=== PATIENT | female | born 1975 | race Caucasian/White ===

== ENCOUNTER 2021-12-05 01:41 | Observation (INO) | payer BC ==
[2021-12-05] MEDS ORDERED: ONDANSETRON 4 MG/2 ML VIAL IVP STA ×2 (02:08→03:13)
[2021-12-05] MEDS ORDERED: SODIUM CHLORIDE 0.9% 500 ML 500 ML IV STA (02:08)
[2021-12-05 02:17] LABS: Basophils % (A) 0 %; Eosinophils # (A) 0.1 k/uL (0-0.7); Eosinophils % (A) 1 %; HCT 45.4 % (34.0-46.0); Lymphocytes # (A) 1.2 k/uL (1.0-4.8); Lymphocytes % (A) 7 %; MCH 31.2 pg (25.0-35.0); MCHC 35.3 g/dL (31.0-37.0); MCV 88.3 fL (80.0-100.0); Mean Platelet Volume 8.8; Monocytes # (A) 0.3 k/uL (0-1.0); Monocytes % (A) 2 %; Neutrophils # (A) 17.2 k/uL (1.3-7.7); Neutrophils % (A) 91 %; Platelet Count 197 k/uL (150-450); RBC 5.14 m/uL (3.80-5.40); RDW 13.1 % (11.5-15.5)
[2021-12-05 02:32] LABS: ALT 25 U/L (4-34); AST 27 U/L (14-36); African American GFR (CKD) >90 (>60 ml/min/1.73 sqM); Albumin 4.8 g/dL (3.5-5.0); Alkaline Phosphatase 58 U/L (38-126); Amylase 54 U/L (30-110); Anion Gap 14 mmol/L; Blood Urea Nitrogen 16 mg/dL (7-17); Calcium 9.5 mg/dL (8.4-10.2); Carbon Dioxide 19 mmol/L (22-30); Chloride 100 mmol/L (98-107); Glucose 140 mg/dL (74-99); Lipase 110 U/L (23-300); Non-African American GFR(CKD) >90 (>60 ml/min/1.73 sqM); Potassium 4.1 mmol/L (3.5-5.1); Sodium 133 mmol/L (137-145); Total Bilirubin 0.9 mg/dL (0.2-1.3); Total Protein 7.3 g/dL (6.3-8.2)
[2021-12-05] MEDS ORDERED: METOCLOPRAMIDE 5 MG/ML 2 ML VIAL IVP STA ×2 (03:22→07:30)
--- NOTE | 2021-12-05 03:43 | CT ---
EXAMINATION TYPE: CT abdomen pelvis wo con DATE OF EXAM: 12/05/2021 COMPARISON: None HISTORY: RUQ abdominal pain. no prior on pacs CT DLP: 339.9 mGycm Automated exposure control for dose reduction was used. Images obtained from the diaphragm to the floor of the pelvis with no contrast. The lung bases are clear. No pleural effusion. Heart size is normal. No pericardial effusion. Liver s pleen stomach pancreas and gallbladder appear normal. The bile ducts are not dilated. There is no adrenal mass. Kidneys have normal size and contour. No hydronephrosis. No retroperitoneal adenopathy. The bladder distends smoothly. No inguinal hernia. No free fluid in the pelvis. Uterus i s anteverted. There is 2 cm slightly rounded calcified density in the left adnexal region that could be calcifying ovarian cyst. Appendix is posterior and appears normal. There is no mesenteric edema. No ascites or free air. No sign of a bowel obstruction. There are sigmo id diverticula. The lumbar vertebrae have normal alignment. No compression fracture. There is mild narrowing at L5-S1 disc space. The bony pelvis is intact. The hip joints are intact. IMPRESSION: Normal appendix. Left adnexal calcific density could be calcification in the left ovary. There is mil d sigmoid diverticulosis without diverticulitis.
[2021-12-05 05:08] LABS: Appearance,Urine Cloudy (Clear); Bilirubin,Urine Negative (Negative); Blood,Urine Negative (Negative); Color,Urine Yellow; Glucose,Urine (UA) Negative (Negative); Hyaline Casts,Urine 1 /lpf (0-2); Ketones,Urine 4+ (Negative); Leukocyte Esterase,Urine Negative (Negative); Mucus,Urine Many /hpf; Nitrite,Urine Negative (Negative); PH, Urine 6.5 (5.0-8.0); Protein,Urine 1+ (Negative); RBC,Urine 6 /hpf (0-5); Specific Gravity,Urine 1.028 (1.001-1.035); Squamous Epithelial Cell,Urine 4 /hpf (0-4); Urobilinogen,Urine <2.0 mg/dL (<2.0); WBC,Urine 3 /hpf (0-5)
[2021-12-05] MEDS ORDERED: MAG HYDROX/AL HYDROX/SIMETH 30 ML, HYOSCYAMINE ELIXIR 10 ML, LIDOCAINE VISCOUS 2% 10 ML PO STA ×3 (05:29)
[2021-12-05] MEDS ORDERED: FAMOTIDINE 20 MG/2 ML VIAL IV STA (07:30)
--- NOTE | 2021-12-05 07:41 | ED ---
Abdominal Pain HPI <James Baker - Last Filed: 12/05/21 09:33> - General Source: patient Mode of arrival: ambulatory - History of Present Illness MD Complaint: abdominal pain -: hour(s) Location: epigastric Radiation: none Migration to: no migration Severity: severe Quality: sharp Consistency: constant Improves With: nothing Worsens With: nothing Associated Symptoms: nausea, vomiting - Related Data LMP (females 10-50): this week <Hakeem Hicks - Last Filed: 12/09/21 00:55> - General Chief Complaint: Abdominal Pain Stated Complaint: Abdominal Pain Time Seen by Provider: 12/05/21 01:54 - History of Present Illness Initial Comments: This patient is a 45-year-old woman presenting with epigastric pain and vomiting that had come on over the past couple of hours. Patient states that the pain is severe. She has not noted worsening or relieving factors. She is having bilious vomiting, multiple episodes. No blood or coffee-ground emesis. Patient's last bowel movement a number of hours ago was somewhat loose. She has not noted any change in urination. (Hakeem Hicks) - Related Data Home Medications Medication Instructions Recorded Confirmed Dextroamphetamine/Amphetamine 20 mg PO DAILY 12/05/21 12/05/21 [Adderall Xr 20 mg Capsule] Dextroamphetamine/Amphetamine 10 mg PO PC-LUNCH 12/05/21 12/05/21 [Adderall] Ibuprofen [Motrin] 800 mg PO DAILY PRN 12/05/21 12/05/21 Varenicline [Chantix Starter Pack] 0.5 mg PO DIRECTED 12/05/21 12/05/21 Allergies Allergy/AdvReac Type Severity Reaction Status Date / Time No Known Allergies Allergy Verified 12/05/21 10:29 Review of Systems ROS Other: All systems not noted in ROS Statement are negative. <James Baker - Last Filed: 12/05/21 09:33> ROS Other: All systems not noted in ROS Statement are negative. Constitutional: Denies: fever, chills Respiratory: Denies: cough, dyspnea Cardiovascular: Denies: chest pain, palpitations, edema Gastrointestinal: Reports: abdominal pain, nausea, vomiting. Denies: diarrhea Genitourinary: Denies: dysuria, frequency, hematuria Musculoskeletal: Denies: back pain Skin: Denies: rash Neurological: Denies: headache, weakness <Hakeem Hicks - Last Filed: 12/09/21 00:55> ROS Statement: Those systems with pertinent positive or pertinent negative responses have been documented in the HPI. Past Medical History Past Medical History: No Reported History History of Any Multi-Drug Resistant Organisms: None Reported Past Surgical History: No Surgical Hx Reported Past Psychological History: No Psychological Hx Reported Smoking Status: Never smoker Past Alcohol Use History: None Reported Past Drug Use History: None Reported <Hakeem Hicks - Last Filed: 12/09/21 00:55> General Exam General appearance: alert, in no apparent distress Head exam: Present: atraumatic, normocephalic Eye exam: Present: normal appearance. Absent: scleral icterus, conjunctival injection Neck exam: Present: normal inspection Respiratory exam: Present: normal lung sounds bilaterally. Absent: respiratory distress, wheezes, rales, rhonchi, stridor Cardiovascular Exam: Present: regular rate, normal rhythm, normal heart sounds. Absent: systolic murmur, diastolic murmur, rubs, gallop GI/Abdominal exam: Present: soft, tenderness (Epigastric). Absent: distended, guarding, rebound, rigid, mass, pulsatile mass, hernia Extremities exam: Present: normal inspection, normal capillary refill. Absent: pedal edema, calf tenderness Back exam: Present: normal inspection. Absent: CVA tenderness (R), CVA tenderness (L) Neurological exam: Present: alert Skin exam: Present: warm, dry, intact, normal color. Absent: rash <Hakeem Hicks - Last Filed: 12/09/21 00:55> Course Vital Signs 12/05/21 12/05/21 12/05/21 01:47 07:38 12:11 Temperature 99.2 F Pulse Rate 99 96 105 H Pulse Rate [ Pulse Oximetery ] Respiratory 18 18 18 Rate Blood Pressure 121/59 128/79 120/62 Blood Pressure [Right Arm] O2 Sat by Pulse 98 100 99 Oximetry 12/05/21 12/05/21 15:00 15:50 Temperature 98.6 F Pulse Rate 85 Pulse Rate [ 68 Pulse Oximetery ] Respiratory 20 16 Rate Blood Pressure 124/72 Blood Pressure 100/63 [Right Arm] O2 Sat by Pulse 99 100 Oximetry Medical Decision Making - Lab Data Result diagrams: 12/05/21 01:58 12/05/21 01:58 - Radiology Data Radiology results: report reviewed (Computed tomography scan abdomen and pelvis reveals no acute abnormality. Ultrasound shows no acute process) <James Baker - Last Filed: 12/05/21 09:33> - Lab Data Result diagrams: 12/07/21 05:20 12/07/21 05:20 <Hakeem Hicks - Last Filed: 12/09/21 00:55> - Medical Decision Making Patient reevaluated twice. Patient still has mild discomfort. Abdomen soft with mild tenderness to the epigastric region. Patient still feels nauseated. Patient did vomit with by mouth challenge. Patient will be held for observation secondary to intractable nausea vomiting. Diego Duarte has been paged for city call. (James Baker) - Lab Data Lab Results 12/05/21 12/05/21 12/05/21 Range/Units 01:58 01:58 01:58 WBC 19.0 H (3.8-10.6) k/uL RBC 5.14 (3.80-5.40) m/uL Hgb 16.0 (11.4-16.0) gm/dL Hct 45.4 (34.0-46.0) % MCV 88.3 (80.0-100.0) fL MCH 31.2 (25.0-35.0) pg MCHC 35.3 (31.0-37.0) g/dL RDW 13.1 (11.5-15.5) % Plt Count 197 (150-450) k/uL MPV 8.8 Neutrophils % 91 % Lymphocytes % 7 % Monocytes % 2 % Eosinophils % 1 % Basophils % 0 % Neutrophils # 17.2 H (1.3-7.7) k/uL Lymphocytes # 1.2 (1.0-4.8) k/uL Monocytes # 0.3 (0-1.0) k/uL Eosinophils # 0.1 (0-0.7) k/uL Basophils # 0.0 (0-0.2) k/uL Sodium 133 L (137-145) mmol/L Potassium 4.1 (3.5-5.1) mmol/L Chloride 100 (98-107) mmol/L Carbon Dioxide 19 L (22-30) mmol/L Anion Gap 14 mmol/L BUN 16 (7-17) mg/dL Creatinine 0.58 (0.52-1.04) mg/dL Est GFR (CKD-EPI)AfAm >90 (>60 ml/min/1.73 sqM) Est GFR (CKD-EPI)NonAf >90 (>60 ml/min/1.73 sqM) Glucose 140 H (74-99) mg/dL Plasma Lactic Acid Ethan 2.0 (0.7-2.0) mmol/L Calcium 9.5 (8.4-10.2) mg/dL Total Bilirubin 0.9 (0.2-1.3) mg/dL AST 27 (14-36) U/L ALT 25 (4-34) U/L Alkaline Phosphatase 58 (38-126) U/L Total Protein 7.3 (6.3-8.2) g/dL Albumin 4.8 (3.5-5.0) g/dL Amylase 54 (30-110) U/L Lipase 110 (23-300) U/L Urine Color Urine Appearance (Clear) Urine pH (5.0-8.0) Ur Specific [place] (1.001-1.035) Urine Protein (Negative) Urine Glucose (UA) (Negative) Urine Ketones (Negative) Urine Blood (Negative) Urine Nitrite (Negative) Urine Bilirubin (Negative) Urine Urobilinogen (<2.0) mg/dL Ur Leukocyte Esterase (Negative) Urine RBC (0-5) /hpf Urine WBC (0-5) /hpf Ur Squamous Epith Cells (0-4) /hpf Hyaline Casts (0-2) /lpf Urine Mucus (None) /hpf Urine HCG, Qual (Not Detectd) 12/05/21 12/05/21 Range/Units 04:01 04:01 WBC (3.8-10.6) k/uL RBC (3.80-5.40) m/uL Hgb (11.4-16.0) gm/dL Hct (34.0-46.0) % MCV (80.0-100.0) fL MCH (25.0-35.0) pg MCHC (31.0-37.0) g/dL RDW (11.5-15.5) % Plt Count (150-450) k/uL MPV Neutrophils % % Lymphocytes % % Monocytes % % Eosinophils % % Basophils % % Neutrophils # (1.3-7.7) k/uL Lymphocytes # (1.0-4.8) k/uL Monocytes # (0-1.0) k/uL Eosinophils # (0-0.7) k/uL Basophils # (0-0.2) k/uL Sodium (137-145) mmol/L Potassium (3.5-5.1) mmol/L Chloride (98-107) mmol/L Carbon Dioxide (22-30) mmol/L Anion Gap mmol/L BUN (7-17) mg/dL Creatinine (0.52-1.04) mg/dL Est GFR (CKD-EPI)AfAm (>60 ml/min/1.73 sqM) Est GFR (CKD-EPI)NonAf (>60 ml/min/1.73 sqM) Glucose (74-99) mg/dL Plasma Lactic Acid Ethan (0.7-2.0) mmol/L Calcium (8.4-10.2) mg/dL Total Bilirubin (0.2-1.3) mg/dL AST (14-36) U/L ALT (4-34) U/L Alkaline Phosphatase (38-126) U/L Total Protein (6.3-8.2) g/dL Albumin (3.5-5.0) g/dL Amylase (30-110) U/L Lipase (23-300) U/L Urine Color Yellow Urine Appearance Cloudy H (Clear) Urine pH 6.5 (5.0-8.0) Ur Specific [place] 1.028 (1.001-1.035) Urine Protein 1+ H (Negative) Urine Glucose (UA) Negative (Negative) Urine Ketones 4+ H (Negative) Urine Blood Negative (Negative) Urine Nitrite Negative (Negative) Urine Bilirubin Negative (Negative) Urine Urobilinogen <2.0 (<2.0) mg/dL Ur Leukocyte Esterase Negative (Negative) Urine RBC 6 H (0-5) /hpf Urine WBC 3 (0-5) /hpf Ur Squamous Epith Cells 4 (0-4) /hpf Hyaline Casts 1 (0-2) /lpf Urine Mucus Many H (None) /hpf Urine HCG, Qual Not Detected (Not Detectd) Disposition Is patient prescribed a controlled substance at d/c from ED?: No Time of Disposition: 09:34 <James Baker - Last Filed: 12/05/21 09:33> <Hakeem Hicks - Last Filed: 12/09/21 00:55> Clinical Impression: Abdominal pain, Vomiting Disposition: ADMITTED IP TO THIS HOSP Condition: Fair
--- NOTE | 2021-12-05 08:30 | US ---
EXAMINATION TYPE: US abdomen limited DATE OF EXAM: 12/05/2021 COMPARISON: CT abdomen and pelvis earlier today pancreas within normal limits. CLINICAL HISTORY: attention RUQ. N/V TECHNIQUE: Multiple sonographic images of the right upper quadrant are obtained. FINDINGS: EXAM MEASUREMENTS: Liver Length: 15.2 cm Gallbladder Wall: 0.2 cm CBD: 0.6 cm Right Kidney: 10.6 x 4.3 x 4.4 cm Pancreas: wnl Liver: wnl Gallbladder: fold seen, wnl Evidence for sonographic Sotelo's sign: no CBD: wnl Right Kidney: wnl Pancreas unremarkable. Liver appears within normal limits. No shadowing mobile gallstones. No right-s ided hydronephrosis. No biliary dilatation. IMPRESSION: No gallstones or ultrasound evidence for acute cholecystitis.
[2021-12-05] MEDS ORDERED: ACETAMINOPHEN TAB 325 MG TAB PO PRN (09:34)
[2021-12-05] MEDS ORDERED: ONDANSETRON 4 MG/2 ML VIAL IVP PRN (09:34)
[2021-12-05] MEDS ORDERED: NALOXONE 0.4 MG/ML 1 ML VIAL IV PRN (09:34)
[2021-12-05] MEDS: SODIUM CHLORIDE 0.9% 1,000 ML IV SCH (11:00)
[2021-12-05] MEDS: PANTOPRAZOLE 40 MG/10 ML VIAL IV SCH (11:00)
[2021-12-05] MEDS: METOCLOPRAMIDE 5 MG/ML 2 ML VIAL IVP SCH (17:43)
[2021-12-05] MEDS: ONDANSETRON 4 MG/2 ML VIAL IVP PRN (19:13)
[2021-12-06] MEDS: METOCLOPRAMIDE 5 MG/ML 2 ML VIAL IVP SCH ×5 (00:20→23:40)
[2021-12-06] MEDS: SODIUM CHLORIDE 0.9% 1,000 ML IV SCH ×2 (00:20→14:46)
[2021-12-06] MEDS: ONDANSETRON 4 MG/2 ML VIAL IVP PRN ×3 (04:29→16:42)
--- NOTE | 2021-12-06 05:10 | HP ---
HISTORY AND PHYSICAL HISTORY OF PRESENT ILLNESS: A 45-year-old white woman came in with hypercapnic pain, vomiting following 1 day of severe diarrhea. She is admitted for possible bilious vomiting, multiple episodes of coffee-ground emesis. She had diarrhea a day ago, possibly gastroenteritis with dehydration and progressive emesis, rule out cholecystitis. ALLERGIES: Negative. REVIEW OF SYMPTOMS: A 14-point review of systems otherwise negative. PAST MEDICAL HISTORY: Negative except for possible ADHD. PHYSICAL EXAMINATION: VITAL SIGNS: Blood pressure 120s over 50s to 70s, O2 of 98 to 100, pulse 96 to 99, respiratory rate 16 to 18. CARDIOVASCULAR: S1, S2. LUNGS: Clear. GI: Increased bowel sounds x4. Mild guarding. No rebound. EXTREMITIES: No cyanosis, clubbing, or edema. BACK: Nontender. NEUROLOGIC: Cranial nerves intact. HEENT: Pupils equal, round, reactive. NECK: Supple. No mass. LABS: White count is 19, hemoglobin is 15. Sodium 133, potassium 4.1, white count 19. CT scan is negative. ASSESSMENT: Probable gastroenteritis with progressive nausea, vomiting, dehydration. Rehydrate. Leukocytosis secondary to possible gastroenteritis. Infectious Disease and Surgery involved. Prognosis guarded. Antiemetics were given. UA is negative for UTI. Abdominal pain, nausea, vomiting, probable gastroenteritis. Wait for surgical consult. Check white count in the morning. MMODL / IJN: [id number] /
[2021-12-06 08:54] LABS: Basophils # (A) 0.02 X 10*3/uL (0.00-0.10); Basophils % (A) 0.1 %; Eosinophils # (A) 0.02 X 10*3/uL (0.04-0.35); Eosinophils % (A) 0.1 %; HCT 41.3 % (37.2-46.3); HGB 14.1 g/dL (12.0-15.0); Immature Grans, Automated 0.4 %; Lymphocytes # (A) 1.97 X 10*3/uL (0.90-5.00); MCH 30.3 pg (27.0-32.0); MCHC 34.1 g/dL (32.0-37.0); MCV 88.6 fL (80.0-97.0); Mean Platelet Volume 10.8 fL (9.5-12.2); Monocytes # (A) 0.69 X 10*3/uL (0.20-1.00); Monocytes % (A) 4.9 %; NRBC Per 100 WBC 0 /100 WBCS (0.0-0.0); Neutrophils # (A) 11.31 X 10*3/uL (1.80-7.70); Neutrophils % (A) 80.5 %; Platelet Count 199 X 10*3/uL (140-440); RBC 4.66 X 10*6/uL (4.10-5.20); RDW 13.2 % (11.5-14.5); WBC 14.07 X 10*3/uL (4.50-10.00)
[2021-12-06 09:05] LABS: African American GFR (CKD) 121.3 (60.0-200.0); Albumin 3.8 g/dL (3.8-4.9); Albumin/Globulin Ratio 1.9 (1.60-3.17); Anion Gap 9.1 mmol/L (10.00-18.00); Blood Urea Nitrogen 10.5 mg/dL (9.0-27.0); Calcium 8.3 mg/dL (8.7-10.3); Carbon Dioxide 22.9 mmol/L (20.0-27.5); Non-African American GFR(CKD) 104.6 (60.0-200.0); Potassium 3.8 mmol/L (3.5-5.5); Total Bilirubin 0.4 mg/dL (0.30-1.20); Total Protein 5.8 g/dL (6.2-8.2)
[2021-12-06] MEDS: PANTOPRAZOLE 40 MG/10 ML VIAL IV SCH (10:55)
[2021-12-06] MEDS: MORPHINE SULFATE 4 MG/ML SYRINGE IV PRN (11:01)
--- NOTE | 2021-12-06 11:24 | NM ---
EXAMINATION TYPE: NM hepatobiliary w CCK DATE OF EXAM: 12/06/2021 COMPARISON: NONE HISTORY: TECHNIQUE: After the intravenous administration of 4.8 mCi Tc 99m Mebrofenin hepatobiliary scintigrap hy is performed. Immediate images post injection. FINDINGS: There is satisfactory initial accumulation of tracer by the liver. The gallbladder is visualized wit hin 24 minutes. The small bowel activity is noted within 18 minutes. At one hour CCK was administer ed, patient was injected with 1.2 mcg of Kinevac, and gallbladder ejection fraction is calculated at 72 %, in the normal range. Therefore there is no scintigraphic evidence of cystic or common bile gabby t obstruction to suggest acute cholecystitis or gallbladder dyskinesia. IMPRESSION: Exam is within normal limits.
--- NOTE | 2021-12-06 15:09 | P.GSCN ---
History of Present Illness Consult date: 12/06/21 History of present illness: CHIEF COMPLAINT: Abdominal pain HISTORY OF PRESENT ILLNESS: This is a 45-year-old female presented to hospital with epigastric abdominal pain with nausea and vomiting 2 days. Emesis she reports as a brownish in color. She reports having feverish with sweats and chills. She reports that her last bowel movement was also Sunday. Patient did elevated white count. Her computed tomography scan on showing no acute problems. Gallbladder ultrasound had shown no evidence of gallstones. Her HIDA scan was unremarkable. Surgical services consulted in regards to abdominal pain. She denies any prior abdominal surgical history. She's never had EGD completed. Patient seen and examined with Dr. solo PAST MEDICAL HISTORY: See list. PAST SURGICAL HISTORY: See list. MEDICATIONS: See list. ALLERGIES: See list. SOCIAL HISTORY: No illicit drug use. REVIEW OF SYSTEMS: CONSTITUTIONAL: Denies fever or chills. HEENT: Denies blurred vision, vision changes, or eye pain. Denies hemoptysis CARDIOVASCULAR: Denies chest pain or pressure. RESPIRATORY: No shortness of breath. GASTROINTESTINAL: See HPI for pertinent findings HEMATOLOGIC: Denies bleeding disorders. GENITOURINARY: Denies any blood in urine or increased urinary frequency. SKIN: Denies pruitis. Denies rash. PHYSICAL EXAM: VITAL SIGNS: Reviewed GENERAL: Well-developed in no acute distress. HEENT: No sclera icterus. Extraocular movements grossly intact. Moist buccal mucosa. Head is atraumatic, normocephalic. No nasal drainage. ABDOMEN: Soft. Nondistended. Epigastric tenderness in lower pelvic tenderness NEUROLOGIC: Alert and oriented. Cranial nerves II through XII grossly intact. LABORATORY DATA: WBC is 19 down to 14 Hgb 14.1 platelets 199 sodium is 133 up to 137 potassium 3.8 creatinine 0.7 lactic acid 2.0 LFTs within normal range lipase 48 Urinalysis negative for any infection IMAGING: Computed tomography scan abdomen and pelvis normal appendix. Left adnexal calcific density could be tested occasional left ovary. There is mild sigmoid diverticulosis without diverticulitis Abdominal ultrasound no gallstones or evidence of acute cholecystitis HIDA within normal limits ASSESSMENT: 1. Abdominal pain with nausea and vomiting. No evidence of cholecystitis 2. Leukocytosis PLAN: -Continue supportive care -Continue antiemetics -Continue IV fluids -Continue clear liquids as tolerated -Continue to observe Physician Outreach Librarian note has been reviewed by physician. Signing provider agrees with the documented findings, assessment, and plan of care. Past Medical History Past Medical History: No Reported History History of Any Multi-Drug Resistant Organisms: None Reported Past Surgical History: No Surgical Hx Reported Past Psychological History: No Psychological Hx Reported Smoking Status: Current every day smoker Past Alcohol Use History: None Reported Past Drug Use History: None Reported Medications and Allergies Home Medications Medication Instructions Recorded Confirmed Type Dextroamphetamine/Amphetamine 20 mg PO DAILY 12/05/21 12/05/21 History [Adderall Xr 20 mg Capsule] Dextroamphetamine/Amphetamine 10 mg PO PC-LUNCH 12/05/21 12/05/21 History [Adderall] Ibuprofen [Motrin] 800 mg PO DAILY PRN 12/05/21 12/05/21 History Varenicline [Chantix Starter Pack] 0.5 mg PO DIRECTED 12/05/21 12/05/21 History Allergies Allergy/AdvReac Type Severity Reaction Status Date / Time No Known Allergies Allergy Verified 12/05/21 10:29 Surgical - Exam Vital Signs Pulse Resp BP Pulse Ox 99 18 121/59 98 12/05/21 01:47 12/05/21 01:47 12/05/21 01:47 12/05/21 01:47 Results - Labs 12/06/21 05:23 12/06/21 05:23 Abnormal Lab Results - Last 24 Hours (Table) 12/06/21 12/06/21 Range/Units 05:23 05:23 WBC 14.07 H (4.50-10.00) X 10*3/uL Immature Gran # 0.06 H (0.00-0.04) X 10*3/uL Neutrophils # 11.31 H (1.80-7.70) X 10*3/uL Eosinophils # 0.02 L (0.04-0.35) X 10*3/uL Anion Gap 9.10 L (10.00-18.00) mmol/L Calcium 8.3 L (8.7-10.3) mg/dL AST 12 L (13-35) U/L Total Protein 5.8 L (6.2-8.2) g/dL Diabetes panel 12/06/21 Range/Units 05:23 Sodium 137 (135-145) mmol/L Potassium 3.8 (3.5-5.5) mmol/L Chloride 105 (96-109) mmol/L Carbon Dioxide 22.9 (20.0-27.5) mmol/L BUN 10.5 (9.0-27.0) mg/dL Creatinine 0.7 (0.6-1.5) mg/dL Glucose 96 (70-110) mg/dL Calcium 8.3 L (8.7-10.3) mg/dL AST 12 L (13-35) U/L ALT 17 (8-44) U/L Alkaline Phosphatase 41 (41-126) U/L Total Protein 5.8 L (6.2-8.2) g/dL Albumin 3.8 (3.8-4.9) g/dL Calcium panel 12/06/21 Range/Units 05:23 Calcium 8.3 L (8.7-10.3) mg/dL Albumin 3.8 (3.8-4.9) g/dL Pituitary panel 12/06/21 Range/Units 05:23 Sodium 137 (135-145) mmol/L Potassium 3.8 (3.5-5.5) mmol/L Chloride 105 (96-109) mmol/L Carbon Dioxide 22.9 (20.0-27.5) mmol/L BUN 10.5 (9.0-27.0) mg/dL Creatinine 0.7 (0.6-1.5) mg/dL Glucose 96 (70-110) mg/dL Calcium 8.3 L (8.7-10.3) mg/dL Adrenal panel 12/06/21 Range/Units 05:23 Sodium 137 (135-145) mmol/L Potassium 3.8 (3.5-5.5) mmol/L Chloride 105 (96-109) mmol/L Carbon Dioxide 22.9 (20.0-27.5) mmol/L BUN 10.5 (9.0-27.0) mg/dL Creatinine 0.7 (0.6-1.5) mg/dL Glucose 96 (70-110) mg/dL Calcium 8.3 L (8.7-10.3) mg/dL Total Bilirubin 0.40 (0.30-1.20) mg/dL AST 12 L (13-35) U/L ALT 17 (8-44) U/L Alkaline Phosphatase 41 (41-126) U/L Total Protein 5.8 L (6.2-8.2) g/dL Albumin 3.8 (3.8-4.9) g/dL
--- NOTE | 2021-12-06 22:47 | P.CONS ---
History of Present Illness - Reason for Consult Consult date: 12/06/21 - History of Present Illness Patient is a 45-year-old female presenting to the ER yesterday morning for evaluation of abdominal pain diarrhea and vomiting the patient symptoms started initially with diarrhea subsequently the patient did have a episodes of nausea and vomiting and been complaining of some epigastric discomfort described the pain to be more of a sharp in nature 6-7 out of 10 and no radiation with the symptom the patient was evaluated by ER physician on arrival to the patient did have low-grade fever of 99.2 the patient is afebrile since then patient did have white count of 20,000 repeatedly 14.07 kidney function was normal patient did have a CT of abdominal pelvis normal appendix mild diverticulosis but no diverticulitis abdominal ultrasound no gallstones or ultrasound evidence of acute cholecystitis HIDA scan was within normal limits patient has been admitted to hospital infectious disease was consulted because of her elevated white count patient denies any recent exposure to antibiotics Past Medical History Past Medical History: No Reported History History of Any Multi-Drug Resistant Organisms: None Reported Past Surgical History: No Surgical Hx Reported Past Psychological History: No Psychological Hx Reported Smoking Status: Current every day smoker Past Alcohol Use History: None Reported Past Drug Use History: None Reported Medications and Allergies Home Medications Medication Instructions Recorded Confirmed Type Dextroamphetamine/Amphetamine 20 mg PO DAILY 12/05/21 12/05/21 History [Adderall Xr 20 mg Capsule] Dextroamphetamine/Amphetamine 10 mg PO PC-LUNCH 12/05/21 12/05/21 History [Adderall] Ibuprofen [Motrin] 800 mg PO DAILY PRN 12/05/21 12/05/21 History Varenicline [Chantix Starter Pack] 0.5 mg PO DIRECTED 12/05/21 12/05/21 History Allergies Allergy/AdvReac Type Severity Reaction Status Date / Time No Known Allergies Allergy Verified 12/05/21 10:29 Physical Exam Vitals: Vital Signs Temp Pulse Pulse Resp BP BP BP 12/06/21 08:00 18 12/06/21 07:00 99.0 F 86 18 138/69 12/06/21 00:26 98.3 F 89 16 123/71 12/05/21 19:52 99.0 F 90 16 132/62 12/05/21 19:15 68 16 12/05/21 15:50 85 16 124/72 12/05/21 15:00 98.6 F 68 20 100/63 12/05/21 12:11 99.2 F 105 H 18 120/62 Pulse Ox 12/06/21 08:00 12/06/21 07:00 99 12/06/21 00:26 99 12/05/21 19:52 98 12/05/21 19:15 12/05/21 15:50 100 12/05/21 15:00 99 12/05/21 12:11 99 Intake and Output 12/05/21 12/06/21 12/06/21 22:59 06:59 14:59 Other: # Voids 1 3 Weight 58.967 kg Results CBC & Chem 7: 12/06/21 05:23 12/06/21 05:23 Labs: Abnormal Lab Results - Last 24 Hours (Table) 12/06/21 12/06/21 Range/Units 05:23 05:23 WBC 14.07 H (4.50-10.00) X 10*3/uL Immature Gran # 0.06 H (0.00-0.04) X 10*3/uL Neutrophils # 11.31 H (1.80-7.70) X 10*3/uL Eosinophils # 0.02 L (0.04-0.35) X 10*3/uL Anion Gap 9.10 L (10.00-18.00) mmol/L Calcium 8.3 L (8.7-10.3) mg/dL AST 12 L (13-35) U/L Total Protein 5.8 L (6.2-8.2) g/dL Assessment and Plan Plan: 1patient presented to hospital with diarrhea followed by vomiting and some epigastric discomfort in this patient with elevated white count more likely abdominal source and we have the predominant abdominal symptom patient has with a question of possible viral versus bacterial gastroenteritis as the patient current work-up has been negative so far. 2we will obtain stool cultures. 3we will add empirically Unasyn while awaiting further work-up to be completed. 4check inflammatory markers. We will follow on clinical condition and cultures to further adjust medication if needed Thank you for this consultation will follow this patient along with you Time with Patient: Greater than 30
[2021-12-06] MEDS: AMPICILLIN-SULBACTAM 3 GM in SODIUM CHLORIDE 0.9% 100 ML IVPB SCH (23:41)
[2021-12-07] MEDS: SODIUM CHLORIDE 0.9% 1,000 ML IV SCH ×2 (02:43→16:25)
[2021-12-07 03:44] VITALS: RESP 16
[2021-12-07] MEDS: METOCLOPRAMIDE 5 MG/ML 2 ML VIAL IVP SCH ×2 (05:39→13:08)
[2021-12-07] MEDS: AMPICILLIN-SULBACTAM 3 GM in SODIUM CHLORIDE 0.9% 100 ML IVPB SCH ×2 (05:39→13:07)
[2021-12-07 08:25] VITALS: TEMP 98.3
[2021-12-07] MEDS: PANTOPRAZOLE 40 MG/10 ML VIAL IV SCH (08:33)
[2021-12-07 08:52] LABS: Basophils # (A) 0.03 X 10*3/uL (0.00-0.10); Basophils % (A) 0.4 %; Eosinophils # (A) 0.06 X 10*3/uL (0.04-0.35); Eosinophils % (A) 0.8 %; HCT 35.8 % (37.2-46.3); HGB 11.9 g/dL (12.0-15.0); Immature Grans, Automated 0.3 %; Lymphocytes # (A) 2.27 X 10*3/uL (0.90-5.00); Lymphocytes % (A) 29.1 %; MCH 30.2 pg (27.0-32.0); MCHC 33.2 g/dL (32.0-37.0); MCV 90.9 fL (80.0-97.0); Mean Platelet Volume 10.6 fL (9.5-12.2); Monocytes # (A) 0.49 X 10*3/uL (0.20-1.00); Monocytes % (A) 6.3 %; NRBC Per 100 WBC 0 /100 WBCS (0.0-0.0); Neutrophils # (A) 4.93 X 10*3/uL (1.80-7.70); Neutrophils % (A) 63.1 %; Platelet Count 146 X 10*3/uL (140-440); RBC 3.94 X 10*6/uL (4.10-5.20); RDW 13.2 % (11.5-14.5)
[2021-12-07 09:07] LABS: ALT 14 U/L (8-44); AST 12 U/L (13-35); African American GFR (CKD) 121.3 (60.0-200.0); Albumin 3.4 g/dL (3.8-4.9); Alkaline Phosphatase 34 U/L (41-126); BUN/Creat Ratio 13.14 Ratio (12.00-20.00); Blood Urea Nitrogen 9.2 mg/dL (9.0-27.0); C Reactive Protein <0.30 mg/dL (0.00-0.80); Calcium 8.1 mg/dL (8.7-10.3); Chloride 107 mmol/L (96-109); Globulin 1.7 g/dL (1.6-3.3); Glucose 76 mg/dL (70-110); Non-African American GFR(CKD) 104.6 (60.0-200.0); Potassium 3.7 mmol/L (3.5-5.5); Sodium 140 mmol/L (135-145); Total Protein 5.1 g/dL (6.2-8.2)
[2021-12-07] MEDS: MORPHINE SULFATE 4 MG/ML SYRINGE IV PRN (11:10)
--- NOTE | 2021-12-07 14:24 | P.PN ---
Subjective Progress Note Date: 12/07/21 CHIEF COMPLAINT: Abdominal pain with nausea and vomiting HISTORY OF PRESENT ILLNESS: Patient's abdominal pain and nausea and vomiting have improved. She is tolerating regular diet. Afebrile. White count has normalized from 14-7.80 magnesium 2.0 Patient seen and examined with Dr. Mosquera PHYSICAL EXAM: VITAL SIGNS: Reviewed. GENERAL: Well-developed in no acute distress. HEENT: No sclera icterus. Extraocular movements grossly intact. Moist buccal mucosa. Head is atraumatic, normocephalic. ABDOMEN: Soft. Nondistended. Nontender. NEUROLOGIC: Alert and oriented. Cranial nerves II through XII grossly intact. ASSESSMENT: 1. Abdominal pain with nausea and vomiting likely due to a gastroenteritis. Now improved PLAN: -Patient can be discharged from surgical standpoint -Recommend EGD outpatient Physician Party Plan Sales Host/Hostess note has been reviewed by physician. Signing provider agrees with the documented findings, assessment, and plan of care. Objective - Vital Signs Vital signs: Vital Signs Temp 98.3 F 12/07/21 07:00 Pulse 69 12/07/21 07:00 Resp 16 12/07/21 07:00 BP 115/65 12/07/21 07:00 Pulse Ox 99 12/07/21 07:00 FiO2 Intake & Output 12/06/21 12/07/21 12/07/21 18:59 06:59 18:59 Intake Total 118 Balance 118 Intake: Oral 118 Other: # Voids 1 1 - Labs CBC & Chem 7: 12/07/21 05:20 12/07/21 05:20 Labs: Abnormal Lab Results - Last 24 Hours (Table) 12/07/21 12/07/21 Range/Units 05:20 05:20 RBC 3.94 L (4.10-5.20) X 10*6/uL Hgb 11.9 L (12.0-15.0) g/dL Hct 35.8 L (37.2-46.3) % Anion Gap 8.00 L (10.00-18.00) mmol/L Calcium 8.1 L (8.7-10.3) mg/dL AST 12 L (13-35) U/L Alkaline Phosphatase 34 L (41-126) U/L Total Protein 5.1 L (6.2-8.2) g/dL Albumin 3.4 L (3.8-4.9) g/dL
[2021-12-07 14:43] VITALS: BP 99/60; PULSE 76
--- NOTE | 2021-12-08 03:18 | PN ---
PROGRESS NOTE SUBJECTIVE: White , admitted with intractable nausea, vomiting, and diarrhea, much better than yesterday. We will advance the clear liquid diet to full diet. OBJECTIVE: CARDIOVASCULAR: S1, S2. LUNGS: Clear. PSYCH: Fair mood and affect. GI: increased bowel sounds. ASSESSMENT: Gastroenteritis, dehydration, intractable nausea and vomiting. advance diet as tolerated. Possible discharge home tomorrow as she is much better clinically. MMODL / IJN: [id number] /
== END 2021-12-07 16:26 | disposition home or self-care (01) ==
LOC: EC 01:41 → SUPCPDRO 01:41 → 6NMEDSUR 09:37
PROVIDERS: ADMIT Family Medicine; ATTEND Family Medicine
DX: K52.9 Noninfective gastroenteritis and colitis, unspecified (principal); E86.0 Dehydration; D72.829 Elevated white blood cell count, unspecified; K57.30 Diverticulosis of large intestine without perforation or abscess without bleeding; F17.200 Nicotine dependence, unspecified, uncomplicated; Z79.899 Other long term (current) drug therapy; Z32.02 Encounter for pregnancy test, result negative
CPT/HCPCS: 96376 ×4; 96361 ×3; 96365; 96366; 96375 ×2; 99285; 36415; 80053 ×3; 82150 ×2; 83605; 83690 ×2; 83735; 85025 ×3; 86140; 81001; 81025; 84145; 76705; 74176; 78227; G0378 ×3; A9537; J2270 ×2; J2765 ×3; J2405 ×2; J2805; J0295 ×2; C9113 ×3